=== PATIENT | male | born 1960 | race Hispanic/Latino ===

== ENCOUNTER 2024-10-06 19:04 | Emergency (ER) | payer BC ==
[~2024-10-06] VITALS: Ht 172.7 cm; Wt 82.1 kg
[~2024-10-06 19:04] MED LIST: METF-444 PO
[2024-10-06 19:45] VITALS: BP 120/81; PULSE 85; RESP 20; TEMP 98
--- NOTE | 2024-10-06 20:07 | ERN ---
General Chief Complaint: Other Problems Stated Complaint: IV LEAKING Time Seen by MD: 19:56 History of Present Illness Initial Comments Mr Tripathi is a 63-year-old male with a significant past medical history of chronic bladder infections currently with a PICC line for Zosyn administration. Patient comes in after having day 1 of his antibiotics today. Patient reports that around 530 started feeling more short observe witnessed of the dressing site but denies any ongoing leakage your symptoms of infection. Patient reports that he gets Zosyn every 8 hours and has no other complaints at the time Allergies: Coded Allergies: No Known Allergies (Unverified Allergy, Unknown, 09/30/24) Home Meds Reported Medications Metformin HCl (Metformin HCl) 500 Mg Tablet, 1 TAB PO BID for 30 Days, #60 TAB 0 Refills 09/30/24 Past Medical History Past Medical History: No Pertinent History Past Surgical History: None ROS Dictation Constitutional: Negative for fever,chills, and weight loss Eyes: Negative for injury, pain,redness, and discharge ENT: Negative for injury,pain or swelling Cardiovascular: Negative for chest pain, palpitations, and edema Respiratory: Negative for shortness of breath, cough, and wheezing, Abdomen/GI: Negative for abdominal pain, nausea, vomiting, diarrhea, and constipation Back: Negative for injury and pain : Negative for injury, bleeding and discharge MS/Extremity: Line issue Skin: Negative for rash, and discoloration Neuro: Negative for headache, weakness, numbness, tingling, and seizure Psych: Negative for suicide ideation, homicidal ideation, and hallucinations Physical Exam Physical Exam Dictation General: awake, alert, NAD Head/Face: Normocephalic, atraumatic Eyes: PERRL, EOMI, vision at baseline ENT: oral cavity clear, TMs clear, no signs of infection Neck: Trachea midline, supple, no nuchal rigidity Cardiovascular: RRR, normal S1/S2, No MRGs, no JVD Respiratory: CTAB, no respiratory distress, No rales or wheezes Abdomen: Soft, non-tender, non-distended, normal bowel sounds, no guarding or rebound. Skin: Warm, dry, normal turgor, no rash MS/Extremity: Pulses equal, no cyanosis, neurovascular intact PICC line in place in left arm Neuro: COAx4, GCS 15, strength 5/5, CN 2-12 intact, normal cerebellar exam, normal gait, Psych: Normal behavior, mood, and affect normal MDM Patient did have flushing and withdrawal of the his PICC line without issue. Dressing was changed. There was no evidence of any leaking. Patient will be discharged. MDM: Differential diagnosis: PICC line issue Rationale: Tests considered and ordered secondary to shared decision making include: Previous outside records reviewed: Old ER visits. Risk of complication and/or morbidity or mortality of patient management: None Medications-Per medication reconciliation Need for hospitalization: Patient does not meet criteria for hospitalization. Need for emergency major/minor surgery: No There are no social concerns with this patient. Prescription drug management Prescriptions will include symptomatic care Patient's prior external medical records from other ER visits were reviewed by me as indicated. Prior testing and results from previous visits were reviewed. Prior tests were taken into account with medical decision making and resource utilization, independent historian/historians were used to obtain complete medical history. I independently interpreted the test that were performed, results were reviewed by me and considered findings on radiology if ordered. Medical management and examination interpretation discussions were had by me with other qualified healthcare professionals as indicated for the patient's care. ED Course Vital Signs Date Time Temp Pulse Resp B/P (MAP) Pulse Ox O2 Delivery O2 Flow Rate FiO2 10/06/24 19:45 98.1 85 20 120/81 98 Room Air DX & DISP Disposition: Discharge Departure Impression: Primary Impression: Problem with intravenous catheter Condition: Stable Additional Instructions: Please follow up with your primary care physician. If you have changes in your PICC line functionality please come back to emergency department Referrals: SELF,REFERRAL (PCP) JAYDA CHEEK MD Oct 06, 2024 20:07
== END 2024-10-06 20:41 | disposition home or self-care (01) ==
LOC: EDH 19:04
DX: T82.534A Leakage of infusion catheter, initial encounter (principal); Z79.84 Long term (current) use of oral hypoglycemic drugs; Y82.8 Other medical devices associated with adverse incidents; Y92.89 Other specified places as the place of occurrence of the external cause
CPT/HCPCS: 99281